=== PATIENT | female | born 1995 | race African-American/Black ===

== ENCOUNTER 2025-03-11 08:24 | Outpatient (AMB) | payer OTHER, SELFPAY ==
--- NOTE | 2025-03-11 11:11 | MHC.OFFVISWM ---
VS Expanded 03/11/25 11:15 Height 5 ft 3 in Weight 227 lb 8 oz BMI 40.3 Body Fat % 43.6 Body Fat Mass 99.2 Fat Free Mass 128.6 Visceral Fat Rating 11 Body Water % 40.6 Body Water Mass 92.4 Basal Metabolic Rate/Score 1,823 Intake Visit Reasons: [employer] SWL BMI 40.3 Allergies No Known Allergies Allergy (Verified 03/11/25 11:16) Medication List - Last Reconciled 03/11/25 by Tank Duncan MD acetaminophen (Tylenol Extra Strength) 500 mg PO Q6H PRN albuterol sulfate 90 mcg/actuation 2 puffs inhalation Q6H PRN ibuprofen 800 mg PO Q8H PRN omeprazole 20 mg PO DAILY sertraline (Zoloft) 100 mg PO DAILY HPI HPI [employer] SWL BMI 40.3: Details: Start time: 11.05am, End time: 11.55am ?I spent 45 minutes speaking with the patient on the phone plus an additional 5 minutes reviewing and updating records for a total of 50 minutes HPI Comments Details: Previous weight loss efforts: [employer], [facility] program (Dr. Sethi), exercise Wakes up: 6am, Sleeps: 11.30pm Breakfast: skips Lunch: skips Dinner: 9pm (chicken, rice, fish, spinach) Snacks: 2 snacks before dinner (gummy wears, chips), 10pm (candy) Exercise: none Beverages: Coffee: (1 cup/d with sugar and creamer), Tea: daily (2 cup/d with condensed milk), Soda: none, Juice: 1/wk (apple juice, orange juice), ETOH: 2/month (1 glass of wine) PFSH Medical History (Updated 03/11/25 @ 11:20 by Tank Duncan MD) Asthma Chronic headaches Anxiety Depression GERD (gastroesophageal reflux disease) Back pain Morbid obesity Surgical History (Updated 03/09/25 @ 11:39 by Sammy Bartlett, REINALDO) History of laparoscopic cholecystectomy History of delivery Family History (Updated 03/09/25 @ 11:38 by Sammy Bartlett, RN) Mother No problems noted. Father No problems noted. Paternal Grandmother Breast cancer Social History (Updated 03/09/25 @ 11:42 by Sammy Bartlett, RN) Alcohol intake: current Comment: once a week Substance Use Type: Marijuana Telehealth Telehealth Telehealth Platform: Telephone Location of provider rendering services: practice address Location of patient: address on file Patient Identification confirmed using: Name, : Yes Telehealth method: voice only Patient verbally consented to treatment: Yes Patient verbally consented to billing insurance company: Yes Patient informed of any privacy concerns related to visit: Yes Minutes spent on Phone/Video with Pt.: 50 Assessment & Plan Assessment & Plan (1) Morbid obesity: Code(s): E66.01 - Morbid (severe) obesity due to excess calories Category: Medical Plan: 1.? Plan for lap sleeve gastrectomy. If diaphragmatic or ventral hernias are present at time of surgery, these will be repaired laparoscopically as well. I emphasized the importance of close follow-up, adherence to instructions and good communication. The surgery does not replace the need to change your lifestlyle which is the cause of the obesity problem. The surgery provides the motivation to try again to change your lifestyle, it reduces the appetite and make the transition to a better lifestyle easier and doubles the amount of weight you would lose compared to doing the lifestyle change without the surgery. You will need to be on a liquid diet with protein shakes for 2 weeks before surgery to maximize weight loss and boost your nutritional status to recover better from surgery and also for the first two weeks after surgery to let the stomach heal before we introduce other foods. After the first 2 weeks we will introduce protein bars and soft foods like scrambled eggs, cottage cheese and yogurt and after the 6th week will introduce meat, fish and cooked vegetables in small amounts. Over time you should be able to eat everything in small amounts. Side effects like nausea, vomiting, heartburn or abdominal pain are not common in the practice unless you are not following in the practice. This operation requires lifetime commitment to following in our practice and communication with me. You will much less weight and experience side effects if you don?t communicate or not following in the practice. Complications are rare and in our practice is about 1/10 of the national average. However, you can develop bleeding that may require transfusion (hasn?t happened for year in the practice), you may from complications (we did not have any deaths in the practice) and infections. Infections are usually a result of breakdown in communication or not understanding or following directions correctly. They are difficult to treat, they can happen during the first 6 weeks, they may require to be in the hospital for weeks or even months, not being able to eat by mouth and you may have drains and surgeries to try and correct the issue. Other risks and complications include possible conversion to an open procedure, leaks, small bowel obstruction, blood clots, cardiac, or pulmonary complications, as intermodal owner operator truck driver complications such as ulcers, insufficient weight loss and vitamin deficiencies. 2. Nutritional counseling. Start with one premade PREMIER protein (buy at [employer] or [employer]) shake (mix 4oz of Premier mixed with 4oz low fat unsweetened almond milk each) at 7am-9am, one protein bar (Fit Crunch protein bar, buy at [employer], or [employer]) at 10am-12pm, another premade PREMIER protein shake (mix 4oz of Premier mixed with 4oz low fat unsweetened almond milk each) at 1pm-3pm, another [employer] protein bar,? dinner at 7pm (8 forks of protein and 8 forks of salad/vegetables) and one more [employer] bar at 9-11pm So you do 2 protein shakes, 3 protein bars and one meal per day. Meal to include lean meat (beef, fish, pork, turkey, chicken), or austrian yogurt, or egg whites, or beans with a salad with olive oil and fruits (berries, pears, apples, kiwi). Avoid salt, breads, potatoes, rice, pasta, desserts. 3. Each shake would be drunk slowly, like coffee in a period of 2 hours. 4. Cut each bar in 4 pieces and eat each piece in 30min ?to make each bar last 2 hours. 5. I emphasized the importance of measuring accurately the food portion and measure it when serving the food in plate 6. The meal portions include 8 full-size forks of meat and 8 full-size forks of salad. You always eat the meat portion but you can replace up to 4 forks for salad/vegetables with rice, potatoes or pasta, or a fruit ?if you like. The less you do it the better weight loss will be. 7. One full-size fork is what it can be scooped on the fork without falling aside and not what can be bit with the fork. Use regular forks like those you find in a typical restaurant. 8.? Please buy the body composition scale we discussed and send me weight measurements as soon as possible and then once a week. Always include your diet and exercise plan. 9. Start walking outside daily, tracking calories with a goal of 300 calories per day, daily. Goal is to burn 2000 calories per week on exercise, which means either 300 calories daily, or 400 calories 5 days per week, or 500 calories 4 days per week, or 650 calories 3 days per week. 10. The best choice would be to purchase a stationary bike, elliptical or treadmill at home that can track calories. Let me know if you do so I can give you an exercise plan. 11.?It is important of avoiding and for at least 18 months postoperatively and has been discussed at the infosession. 12. Goal is to lose at least 1.5-2lbs per week 13. Goal to lose 10% of your weight before surgery, which is about 23lbs. Ultimate weight goal: 204lbs before surgery 14. Please follow the diet plan exactly without any change. If you don't like something about the plan or you feel hungry you need to communicate with me so I can help you revise the plan. You should not change the plan yourself 15. To be scheduled for EGD to assess the stomach's anatomy. The possibility of biopsies was discussed. Patient needs to avoid use of NSAIDs and aspirin for 1 week prior to EGD. You must be on liquids only the day before your endoscopy. Risks of perforation and bleeding was discussed with the patient. This will be an outpatient procedure with IV sedation. Orders: Orders H Pylori Breath Test Today E66.01 - Morbid (severe) obesity due to excess calories Complete Blood Count Auto Diff Today E66.01 - Morbid (severe) obesity due to excess calories Lipid Panel Today E66.01 - Morbid (severe) obesity due to excess calories Comprehensive Met. Panel Today E66.01 - Morbid (severe) obesity due to excess calories Vitamin A Today E66.01 - Morbid (severe) obesity due to excess calories Vitamin D 25-OH Total Today E66.01 - Morbid (severe) obesity due to excess calories Insulin Today E66.01 - Morbid (severe) obesity due to excess calories Hemoglobin A1c Today E66.01 - Morbid (severe) obesity due to excess calories IRON PROFILE Today E66.01 - Morbid (severe) obesity due to excess calories Vitamin B12 and Folate Today E66.01 - Morbid (severe) obesity due to excess calories Zinc Today E66.01 - Morbid (severe) obesity due to excess calories C Reactive Protein Today E66.01 - Morbid (severe) obesity due to excess calories Vitamin B1 Today E66.01 - Morbid (severe) obesity due to excess calories TSH reflex Free T4 Today E66.01 - Morbid (severe) obesity due to excess calories Ferritin Today E66.01 - Morbid (severe) obesity due to excess calories US abdomen comp w elastography Today E66.01 - Morbid (severe) obesity due to excess calories XR chest 2V Today E66.01 - Morbid (severe) obesity due to excess calories ECG 12 lead EKG Today E66.01 - Morbid (severe) obesity due to excess calories FL upper GI w air Today E66.01 - Morbid (severe) obesity due to excess calories Referrals Behavioral Health Referral E66.01 - Morbid (severe) obesity due to excess calories Nutrition/Dietitian Referral E66.01 - Morbid (severe) obesity due to excess calories
[2025-03-11 11:15] VITALS: BMI 40.3
== END 2025-03-11 11:56 | disposition home or self-care (01) ==
LOC: HO.HBS 08:24
PROVIDERS: PCP Internal Medicine; Visit Provider Surgery
DX: E66.01 Morbid (severe) obesity due to excess calories (principal)
CPT/HCPCS: 99204

== ENCOUNTER 2025-03-12 07:52 | Outpatient (REF) | payer OTHER, SELFPAY ==
[2025-03-12 08:06] LABS: MANUAL DIFF FLAG NO
[2025-03-12 08:34] LABS: Hematocrit 37.7 % (37.0-47.0); Hemoglobin 12.2 g/dl (12.0-16.0); Imm Gran Abs Auto 0.02 X10*3/uL (0.00-0.03); Imm Gran Pct Auto 0.3 % (0.0-0.4); Lymphocytes Absolute Auto 2.8 X10*3/uL (1.2-4.9); Mean Corpuscular HGB Conc 32.4 g/dl (31.0-35.0); Mean Corpuscular Hemoglobin 29.4 pg (27.0-33.0); Mean Corpuscular Volume 90.8 fL (80.0-98.0); NRBC Abs Auto 0.000 X10*3/uL (0.0-0.012); NRBC Pct Auto 0.0 /100WBC (0.0-0.2); Platelet Count 262 X10*3/uL (160-400); Red Blood Count 4.15 X10*6/uL (4.20-5.50); White Blood Count 7.7 X10*3/uL (4.8-10.8)
[2025-03-12 09:03] LABS: Anion Gap 9 (12-20)
[2025-03-12 09:07] LABS: Alanine Aminotransferase 19 U/L (0-31); Albumin Level 4.2 g/dL (3.5-5.0); Alkaline Phosphatase 92 U/L (39-117); Aspartate Amino Transferase 33 U/L (5-31); Blood Urea Nitrogen 10 mg/dL (9-16); Calcium 9.5 mg/dL (8.4-10.2); Carbon Dioxide 28 mmol/L (22-29); Chloride 110 mmol/L (96-108); Cholesterol 191 mg/dL (<200); Estimated Glomerular Filt Rate > 60; HDL Cholesterol 46 mg/dL (>40); Iron 85 mcg/dL (30-160); Percent Iron Saturation 35 % (15-50); Potassium 4.0 mmol/L (3.3-5.1); Sodium 143 mmol/L (135-145); Total Iron Binding Capacity 242 mcg/dL (228-428); Total Protein 7.1 g/dL (6.5-8.0); Triglycerides 120 mg/dL (<150); Unsaturated Iron Binding 157 ug/dL
[2025-03-12 09:31] LABS: Ferritin 44 ng/mL (10-122)
[2025-03-12 09:35] LABS: Folate 7.6 ng/mL (> or = 4.0); Vitamin B12 537 pg/mL (200-900)
== END 2025-03-12 07:53 | disposition home or self-care (01) ==
LOC: HO.LAB 07:52
PROVIDERS: PCP Internal Medicine; Visit Provider Surgery
DX: E66.01 Morbid (severe) obesity due to excess calories (principal)
CPT/HCPCS: 36415; 80053; 80061; 82306; 82607; 82728; 82746; 83036; 83525; 83540; 84425; 84443; 84590; 84630; 85025; 86140

== ENCOUNTER 2025-03-19 09:34 | Outpatient (REF) | payer OTHER, SELFPAY ==
--- NOTE | ~2025-03-19 | XR_ITS ---
EXAMINATION: XR CHEST CLINICAL INFORMATION: E66.01 - Morbid (severe) obesity due to excess calories COMPARISON: None available. TECHNIQUE: 2 views of the chest were obtained. FINDINGS: No significant abnormality is noted involving the heart, lungs, mediastinum, bony thorax or soft tissues. XR/XR chest 2V IMPRESSION: No evidence of acute cardiopulmonary findings. Electronically signed by: Walter Treadwell MD 03/19/2025 10:00 AM EDT
--- NOTE | 2025-03-19 09:39 | ECG_ITS ---
Test Reason : E66.01 Blood Pressure : */* mmHG Vent. Rate : 68 BPM Atrial Rate : 68 BPM P-R Int : 164 ms QRS Dur : 82 ms QT Int : 384 ms P-R-T Axes : 60 25 25 degrees QTcB Int : 408 ms Normal sinus rhythm Normal ECG No previous ECGs available Referred By: Tank Duncan Electronically Signed By: Bakari Dale
--- OUTSIDE RECORDS SUMMARY | 2025-03-19 11:00 | XMS_ITS | Clinical Summary ---
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, not stated as uncontrolled(250.60) ([facility]) Family History Medical History Relation Name [...] LAB CHEMISTRY METHOD 2024 3:48 PM EST [facility] Potassium 3.7 3.5 - 5.5 mmol/L LAB CHEMISTRY METHOD 2024 3:48 PM [facility] Chloride 102 96 - 110 mmol/L LAB CHEMISTRY METHOD 2024 3:48 PM [facility] CO2 28 21 - 32 mmol/L LAB CHEMISTRY METHOD 2024 3:48 PM [facility] Anion Gap 6 3 - 11 LAB CHEMISTRY METHOD 2024 3:48 PM [facility] Glucose 112(H) 70 - 100 mg/dL LAB CHEMISTRY METHOD 2024 3:48 PM [facility] BUN 14 5 - 25 mg/dL LAB CHEMISTRY METHOD 2024 3:48 PM [facility] Creatinine 0.82 0.50 - 1.10 mg/dL LAB CHEMISTRY METHOD 2024 3:48 PM [facility] eGFR 98 >=60 mL/min/1. 73m2 LAB CHEMISTRY METHOD 2024 3:48 PM [facility] Comment:Calculation based on the Chronic Kidney Disease Epidemiology Collaboration (CKD-EPI) equation refit without adjustment for race. BUN/Creatinine Ratio 17.1 LAB CHEMISTRY METHOD 2024 3:48 PM [facility] Calcium 9.7 8.5 - 10.5 mg/dL LAB CHEMISTRY METHOD 2024 3:48 PM [facility] AST (SGOT) 36 10 - 42 unit/L LAB CHEMISTRY METHOD 2024 3:48 PM [facility] ALT (SGPT) 32 10 - 60 unit/L LAB CHEMISTRY METHOD 2024 3:48 PM [facility] Alkaline Phosphatase 96 42 - 121 unit/L LAB CHEMISTRY METHOD 2024 3:48 PM [facility] Total Protein 7.3 6.0 - 8.0 g/dL LAB CHEMISTRY METHOD 2024 3:48 PM EST [facility] Albumin 3.6 3.2 - 5.0 g/dL LAB CHEMISTRY METHOD 2024 3:48 PM EST [facility] Total Bilirubin 0.3 0.0 - 1.4 mg/dL LAB CHEMISTRY METHOD 2024 3:48 PM EST [facility] Blood Venous blood specimen / Unknown Venipuncture / Unknown 2024 3:02 PM EST 2024 3:15 PM EST us Elroy Fontaine MD LAB BLOOD ORDERABLES Final Resu lt [facility] [address] [place] [address], [place] [phone] * Pap smear (06/14/2021) 06/14/2021 Narrative HISTORICAL TESTING LAB RESULTING AGENCY - 06/24/2021 7:46 AM EST [id number] THINPREP PAP, IMAGED: NEGATIVE FOR SQUAMOUS INTRAEPITHELIAL [...] Most Recently Relevant to Health Maintenance Insurance [facility] MEDICAID ADVANTAGE Care Teams Division Order Analyst Relationship Specialty Start Date End Date Elroy Herrera MD [address] [place] [phone] PCP - General Internal Medicine 02/03/25
--- OUTSIDE RECORDS SUMMARY | 2025-03-19 11:00 | XMS_ITS ---
Author Name [facility] Organization Unknown Care Team Organization Name Specialty Phone Email Start Date End Da te [facility] Elroy Herrera Primary Care 04/11/2022 01/21/20 24
== END 2025-03-19 09:35 | disposition home or self-care (01) ==
LOC: HO.XRAY 09:34
PROVIDERS: PCP Internal Medicine; Visit Provider Surgery
DX: E66.01 Morbid (severe) obesity due to excess calories (principal)
CPT/HCPCS: 71046; 93005

== ENCOUNTER → 2025-03-19 09:39 | Outpatient (BNV) | payer OTHER, SELFPAY | PROVIDERS: PCP Internal Medicine; Visit Provider Internal Medicine Cardiovascular Disease | DX: E66.01 Morbid (severe) obesity due to excess calories (principal); Z68.41 Body mass index [BMI] 40.0-44.9, adult | CPT/HCPCS: 93010 ==

== ENCOUNTER → 2025-03-19 09:49 | Outpatient (BNV) | payer OTHER, SELFPAY | PROVIDERS: PCP Internal Medicine; Visit Provider Radiology Diagnostic Ultrasound | DX: E66.01 Morbid (severe) obesity due to excess calories (principal); Z68.41 Body mass index [BMI] 40.0-44.9, adult | CPT/HCPCS: 71046 ==

== ENCOUNTER 2025-04-01 11:00 | Outpatient (AMB) | payer OTHER, SELFPAY ==
--- NOTE | 2025-04-01 11:00 | A.OFFWM_ITS ---
Intake Intake Visit Reasons: OV BH Intake Allergies No Known Allergies Allergy (Verified 03/11/25 11:16) [facility] Medical History (Updated 03/19/25 @ 20:15 by Tank Duncan MD) Asthma Chronic headaches Anxiety Depression GERD (gastroesophageal reflux disease) Back pain Morbid obesity Surgical History (Updated 03/09/25 @ 11:39 by Sammy Bartlett, RN) History of laparoscopic cholecystectomy History of delivery Family History (Updated 03/09/25 @ 11:38 by Sammy Bartlett, RN) Mother No problems noted. Father No problems noted. Paternal Grandmother Breast cancer Social History (Updated 03/09/25 @ 11:42 by Sammy Bartlett, RN) Alcohol intake: current Comment: once a week Substance Use Type: Marijuana Behavioral Health Assessment Weight Management Therapy Therapy Notes Details Patient is a 29-year-old female presenting for an initial visit to begin a behavioral health assessment as part of her surgical weight loss program. She originally enrolled in the program in [address] Bustamante but withdrew at that time due to . She is now seeking to re-engage in the program and proceed with the required evaluation to support her current weight loss goals. Presenting Concerns Referral Source WMP-Provider Reason for referral Completion of behavioral health assessment as part of process for weight-loss surgery. Precipitating Event Obesity. Living Situation Current Living Situation Rent At risk of losing current housing? No Satisfied with current living situation? Yes Comments PT lives with her boyfriend and 2 kids. Social History Family history and relationship Pt is in a relationship, they have been together since 2020, and have 1 daughter together. Pt has 2 kids, they are 6 from a previous relationship and a 2 daughter from current partner. Her mother lives in the [facility], father lives in [place]. Mother has been to her step-father for 13 years, they raised her together. PT has 2 sisters and 2 brothers, and 2 brothers and 1 sister from bio-father. PT reports she has good family relationships. She is closer to her mom and step dad side of the family. Parental/Familial cement patcher obligations 2 children. Developmental history and status None reported. Currently WNL. Social support Boyfriend, mother. Community support PCP Congregational/Spirituality Nondenominational Cultural/Ethnic information -Czech. Mom is back and [place], father from [place]. Legal Involvement and History Current or historical involvement with the legal system? None. Education Highest grade completed HS Preferred learning style Learn by doing Currently enrolled in educational program? No Interested in further educational program? Yes Educational Interests/Skills PT wants to go back to school for nursing. 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 ) Meaningful activities Family activities, go out with people with kids. Financial Situation Describe current financial situation Occasional struggle Financial assistance? Food [place] and Other ([facility]) Service Service? No Mental Health and Addiction Treatment Current/Past substance abuse? Yes Comments Alcohol: 1xmonth, wine coolers or wine, 2-3 drinks. Cigarettes/Tobacco: [place] leaves on cannabis Cannabis/Edibles: daily, 4 x day Current/Past addictive behavior concerns? No Psychiatric history Pt currently takes Zoloft 100mg for sx of depression, prescribed currently by PCP. She started that medication after having her first son around 6 years ago due to acute stress and being depressed. PT is not in counseling at this time. She attended counseling younger between ages 11 and 14 PT denies ever been in crisis or inpatient for mental health. There is no history and/or current concern about SI/Sa and self-harm or other harm. Medical and Physical Health Summary Additional Medical History not covered in history None aditional Sexual History concerns None reported Physical exam in the last year? Yes Pain Screening Current pain? No Pain in the last few months? Yes Comments Back pain. Medications Is the patient compliant with medications? Yes Does the patient have Pryor Guardian in place? Not applicable Does the patient use complimentary health approaches? No Trauma/Abuse History History of trauma? Yes (LILLIAN: 4) Questionnaires PHQ-9 Over the last 2 weeks, how often have you been bothered by any of the following problems? 1. Little interest or pleasure in doing things: several days 2. Feeling down, depressed, or hopeless: several days 3. Trouble falling or staying asleep, or sleeping too much: several days 4. Feeling tired or having little energy: several days 5. Poor appetite or overeating: more than half the days 6. Feeling bad about yourself - or that you are a failure or have let yourself or your family down: more than half the days 7. Trouble concentrating on things, such as reading the newspaper or watching television: more than half the days 8. Moving or speaking so slowly that other people could have noticed. Or the opposite - being so fidgety or restless that you have been moving around a lot more than usual: more than half the days 9. Thoughts that you would be better off or of hurting yourself in some way: not at all Total score: 12 Depression Screening Interpretation: Positive (from new PT pack - new one will be administered at next jace.) Depression Screening Done: Yes Source: Developed by Drs. Daniel Stanford, Jeanette Patterson, Moisés Morgan and colleagues, with an educational baldo from [employer]. Binge Eating Scale Group 1 A. I don't feel self-conscious about my wt. or body size when I'm with others. B. I feel concerned about how I look to others, but it normally does not make me fell disappointed with myself C. I do get self-conscious about my appearance and wt. which makes me feel disappointed in myself. D. I feel very self-conscious about my wt. and frequently I feel intense shame and disgust for myself. I try to avoid social contacts because of my self- consciousness. Response Group 1: C Group 2 A. I don't have any difficulty eating slowly in the proper manner. B. Although I seem to gobble down foods, I don't end up feeling stuffed because of eating to much. C. At times, I tend to eat quickly and then, I feel uncomfortably full afterwards. D. I have the habit of bolting down my food, without really chewing it. When this happens I usually feel uncomfortably stuffed because I've eaten to much. Response Group 2: A Group 3 A. I feel capable to control my eating urges when I want to. B. I feel like I have failed to control my eating more than the average person. C. I feel utterly helpless when it comes to feeling in control of my eating urges. D. Because I feel so helpless about controlling my eating I have become very desperate about trying to get control. Response Group 3: B Group 4 A. I don't have the habit of eating when I'm bored. B. I sometimes eat when I'm bored, but often I'm able to get busy and get my mind off food. C. I have a regular habit of eating when I'm bored, but occasionally, I can use some other activity to get my mind off eating. D. I have a strong habit of eating when I'm bored. Nothing seems to help me breath the habit. Response Group 4: C Group 5 A. I'm usually physically hungry when I eat something. B. Occasionally, I eat something on impulse even though I really am not hungry. C. I have the regular habit of eating foods, that I might not really enjoy, to satisfy a hungry feeling even though physically, I don't need the food. D. Although I'm not physically hungry, I get a hungry feeling in my mouth that only seems to be satisfied when I eat a food, like sandwich, that fills my mouth. Sometimes, when I eat the food to satisfy my mouth hunger, I then spit the food out so I won't gain weight. Response Group 5: B Group 6 A. I don't feel any guilt or self-hate after I overeat. B. After I overeat, occasionally I feel guilt or self-hate. C. Almost all the time I experience strong guilt or self-hate after I overeat. Response Group 6: B Group 7 A. I don't lose total control of my eating when dieting even after periods when I overeat. B. Sometimes when I eat a forbidden food on a diet, I feel like I blew it and eat even more. C. Frequently, I have the habit of saying to myself, I've blown it now, why not go all the way, when I overeat on a diet. When that happens I eat more. D. I have a regular habit of starting a strict diets for myself but I break the diets by going on an eating binge. My life seems to be either a feast or famine. Response Group 7: D Group 8 A. I rarely eat so much food that I feel uncomfortably stuffed afterwards. B. Usually about once a month, I each such a quantity of food, I end up feeling very stuffed. C. I have regular periods during the month when I eat large amounts of food, either at mealtime or at snacks. D. I eat so much food that I regularly feel quite uncomfortable after eating and sometimes a bit nauseous. Response Group 8: C Group 9 A. My level of calorie intake does not go up very high or go down very low on a regular basis. B. Sometimes after I overeat, I will try to reduce my caloric intake to almost nothing to compensate for the excess calories I've eaten. C. I have a regular habit of overeating during the night. It seems that my routine is not to be hungry in the morning but overeat in the evening. D. In my adult years, I have had week-long periods where I practically starve myself. This follows periods when I overeat. It seems I live a life of either feast or famine. Response Group 9: D Group 10 A. I usually am able to stop eating when I want to. I know when enough is enough. B. Every so often, I experience a compulsion to eat which I can't seem to control. C. Frequently, I experience strong urges to eat which I seem unable to control, but at other times I can control my eating urges. D. I feel incapable of controlling urges to eat. I have a fear of not being able to stop eating voluntarily. Response Group 10: A Group 11 A. I don't have any problem stopping eating when I feel full. B. I usually can stop eating when I feel full but occasionally overeat leaving me feeling uncomfortably stuffed. C. I have a problem stopping eating once I start and usually I feel uncomfortably stuffed after I eat a meal. D. Because I have a problem not being able to stop eating when I want, I sometimes have to induce vomiting to relieve my stuffed feeling. Response Group 11: B Group 12 A. I seem to eat just as much when I'm with others, Family social gatherings as when I'm by myself. B. Sometimes, when I'm with other persons, I don't eat as much as I want to eat because I'm self-conscious about my eating. C. Frequently, I eat only a small amount of food when others are present, because I'm very embarrassed about my eating. D. I feel so ashamed about overeating that I pick times to overeat when I know no one will see me. I feel like a closet eater. Response Group 12: C Group 13 A. I eat three meals a day with only an occasional between meal snack. B. I eat 3 meals a day, but I also normally snack between meals. C. When I am snacking heavily, I get in the habit of skipping regular meals. D. There are regular periods when I seem to be continually eating, with no planned meals. Response Group 13: C Group 14 A. I don't think much about trying to control unwanted eating urges. B. At least some of the time, I feel my thoughts are pre-occupied with trying to control my eating urges. C. I feel that frequently I spend much time thinking about how much I ate or about trying not to eat anymore. D. It seems to me that most of my waking hours are pre-occupied by thoughts about eating or not eating. I feel like I'm constantly struggling not to eat. Response Group 14: B Group 15 A. I don't think about food a great deal. B. I have strong craving for food but they last only for brief periods of time. C. I have days when I can't seem to think about anything else but food. D. Most of my days seem to be pre-occupied with thoughts about food. I feel like I live to eat. Response Group 15: B Group 16 A. I usually know whether or not I'm physically hungry. I take the right portion of food to satisfy me. B. Occasionally, I feel uncertain about knowing whether or not I'm physically hungry. A these times it's hard to know how much food I should take to satisfy me. C. Even though I might know how many calories I should eat, I don't have any idea what is a normal amount of food for me. Response Group 16: A Binge Eating Score: 22 Score less than 17 Minimal Risk Score between 18-26 Moderate Risk Score between 27-46 High Risk Assessment & Plan Assessment & Plan (1) Adjustment disorder: Code(s): F43.20 - Adjustment disorder, unspecified Qualifiers: Adjustment disorder type: with mixed anxiety and depressed mood Qualified Code(s): F43.23 - Adjustment disorder with mixed anxiety and depressed mood Plan The patient was not cleared today as the assessment was not completed. The patient will return in 2-4 weeks to continue the evaluation. Next appointment: 04/22/2025 at 10am, in person Coding Level of Care Code New Pt Psy Diag Eval ([id number]) Patient Type New Diagnoses Adjustment disorder with mixed anxiety and depressed mood F43.23 Adjustment disorder type: with mixed anxiety and depressed mood Time Spent (min) 60
--- OUTSIDE RECORDS SUMMARY | 2025-04-01 13:56 | XMS_ITS | Clinical Summary ---
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, not stated as uncontrolled(250.60) ([facility]) Family History Medical History Relation Name [...] LAB CHEMISTRY METHOD 2024 3:48 PM EST [facility] Potassium 3.7 3.5 - 5.5 mmol/L LAB CHEMISTRY METHOD 2024 3:48 PM [facility] Chloride 102 96 - 110 mmol/L LAB CHEMISTRY METHOD 2024 3:48 PM [facility] CO2 28 21 - 32 mmol/L LAB CHEMISTRY METHOD 2024 3:48 PM [facility] Anion Gap 6 3 - 11 LAB CHEMISTRY METHOD 2024 3:48 PM [facility] Glucose 112(H) 70 - 100 mg/dL LAB CHEMISTRY METHOD 2024 3:48 PM [facility] BUN 14 5 - 25 mg/dL LAB CHEMISTRY METHOD 2024 3:48 PM [facility] Creatinine 0.82 0.50 - 1.10 mg/dL LAB CHEMISTRY METHOD 2024 3:48 PM [facility] eGFR 98 >=60 mL/min/1. 73m2 LAB CHEMISTRY METHOD 2024 3:48 PM [facility] Comment:Calculation based on the Chronic Kidney Disease Epidemiology Collaboration (CKD-EPI) equation refit without adjustment for race. BUN/Creatinine Ratio 17.1 LAB CHEMISTRY METHOD 2024 3:48 PM [facility] Calcium 9.7 8.5 - 10.5 mg/dL LAB CHEMISTRY METHOD 2024 3:48 PM [facility] AST (SGOT) 36 10 - 42 unit/L LAB CHEMISTRY METHOD 2024 3:48 PM [facility] ALT (SGPT) 32 10 - 60 unit/L LAB CHEMISTRY METHOD 2024 3:48 PM [facility] Alkaline Phosphatase 96 42 - 121 unit/L LAB CHEMISTRY METHOD 2024 3:48 PM [facility] Total Protein 7.3 6.0 - 8.0 g/dL LAB CHEMISTRY METHOD 2024 3:48 PM EST [facility] Albumin 3.6 3.2 - 5.0 g/dL LAB CHEMISTRY METHOD 2024 3:48 PM EST [facility] Total Bilirubin 0.3 0.0 - 1.4 mg/dL LAB CHEMISTRY METHOD 2024 3:48 PM EST [facility] Blood Venous blood specimen / Unknown Venipuncture / Unknown 2024 3:02 PM EST 2024 3:15 PM EST us Elroy Fontaine MD LAB BLOOD ORDERABLES Final Resu lt [facility] [address] [place] [address], [place] [phone] * Pap smear (06/14/2021) 06/14/2021 Narrative HISTORICAL TESTING LAB RESULTING AGENCY - 06/24/2021 7:46 AM EST [id number] THINPREP PAP, IMAGED: NEGATIVE FOR SQUAMOUS INTRAEPITHELIAL [...] PAP HX NEG, Z12.4, LMP 05/23/21. Jazlyn aVlle CN LAB CYTOLOGY ORDERA BLES Final Result HISTORICAL TESTING LAB RESULTING AGENCY from Last 3 Months or Most Recently Relevant to Health Maintenance Insurance [facility] MEDICAID ADVANTAGE Care Teams Side Puller Relationship Specialty Start Date End Date Elroy Herrera MD [address] [place] [id number] PCP - General Internal Medicine 02/03/25
== END 2025-04-01 12:23 | disposition home or self-care (01) ==
LOC: HO.HBST 11:00
PROVIDERS: PCP Internal Medicine; Visit Provider Counselor Mental Health
DX: F43.23 Adjustment disorder with mixed anxiety and depressed mood (principal)
CPT/HCPCS: 90791

== ENCOUNTER 2025-04-09 12:22 | Day surgery (SDC) | payer OTHER, SELFPAY ==
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
--- NOTE | 2025-03-19 09:53 | HO.ANESPROP2 ---
Documented by User: Lise Subramanian NP 03/24/25 14:41 HPI - Anesthesia Eval Consult details Narrative: 29yo F for Upper Endoscopy, 04/09/25 PMFSH Active Problems Active Problems: All Active Problems Asthma (Acute) Chronic headaches (Acute) Anxiety (Acute) Depression (Acute) GERD (gastroesophageal reflux disease) (Acute) Back pain (Acute) Morbid obesity (Acute) Past Medical History Medical History Diabetes Asthma Chronic headaches Anxiety Depression GERD (gastroesophageal reflux disease) Back pain Morbid obesity Family History Family History Mother No problems noted. Father No problems noted. Paternal Grandmother Breast cancer Surgical History Surgical History History of laparoscopic cholecystectomy History of delivery Social History Social History Alcohol intake: current Alcohol intake frequency: holidays/special occasions only Comment: once a week Patient Tobacco Use Status: Never used Tobacco Use of substances other than those prescribed or required for medical reasons: Yes Substance Use Type: Marijuana Are you DNR?: No Advance Directives: No Advance Directives Information Provided: Yes : No Meds Allergies Allergy/AdvReac Type Severity Reaction Status Date / Time No Known Allergies Allergy Verified 03/11/25 11:16 Home Medications ?Medication ?Instructions ?Recorded ?Confirmed ?Last Taken ?Type acetaminophen 500 mg tablet 500 mg PO Q6H PRN Pain 03/09/25 04/07/25 Unknown History (Tylenol Extra Strength) ibuprofen 800 mg tablet 800 mg PO Q8H PRN Pain 03/09/25 04/07/25 Unknown History omeprazole 20 mg capsule,delayed 20 mg PO DAILY 03/09/25 04/07/25 Unknown History release sertraline 100 mg tablet (Zoloft) 100 mg PO DAILY 03/09/25 04/07/25 Unknown History albuterol sulfate 90 mcg/actuation 2 puff inhalation Q6H PRN 03/11/25 04/07/25 Unknown History aerosol inhaler Shortness Of Breath Or Wheezing Assessment and Plan Assessment Anesthesia Assessment: Chart Reviewed Documented by User: Hui Galloway MD 04/09/25 14:26 [facility] Past Medical History Medical History Diabetes Asthma Chronic headaches Anxiety Depression GERD (gastroesophageal reflux disease) Back pain Morbid obesity Family History Family History Mother No problems noted. Father No problems noted. Paternal Grandmother Breast cancer Surgical History Surgical History History of laparoscopic cholecystectomy History of delivery History of Problems with Anesthesia: No Social History Social History Alcohol intake: current Alcohol intake frequency: holidays/special occasions only Comment: once a week Patient Tobacco Use Status: Never used Tobacco Use of substances other than those prescribed or required for medical reasons: Yes Substance Use Type: Marijuana Are you DNR?: No Advance Directives: No Advance Directives Information Provided: Yes : No Meds Allergies Allergy/AdvReac Type Severity Reaction Status Date / Time No Known Allergies Allergy Verified 03/11/25 11:16 Home Medications ?Medication ?Instructions ?Recorded ?Confirmed ?Last Taken ?Type acetaminophen 500 mg tablet 500 mg PO Q6H PRN Pain 03/09/25 04/07/25 Unknown History (Tylenol Extra Strength) ibuprofen 800 mg tablet 800 mg PO Q8H PRN Pain 03/09/25 04/07/25 Unknown History omeprazole 20 mg capsule,delayed 20 mg PO DAILY 03/09/25 04/07/25 Unknown History release sertraline 100 mg tablet (Zoloft) 100 mg PO DAILY 03/09/25 04/07/25 Unknown History albuterol sulfate 90 mcg/actuation 2 puff inhalation Q6H PRN 03/11/25 04/07/25 Unknown History aerosol inhaler Shortness Of Breath Or Wheezing Exam Airway Mallampati Class: III TM Dist: >3cm Neck ROM: Full Loose/Missing/Broken Teeth: No Heart: RRR Lungs: CTA Assessment and Plan Assessment Anesthesia Assessment: Anesthesia Plan Discussed Final Anesthetic Review History of Problems with Anesthesia: No NPO: Yes ASA Class: II Final Preanesthetic Review: Meds/Allgs Chart Reviewed, Consent Obtained/Reviewed and Anes Risks/Benef Reviewed Patient Risk: Low Procedure Risk: Intermediate Anesthetic Plan Anesthetic Plan: MAC: Disposition: Standard PACU
[2025-04-07 13:43] VITALS: BMI 40.3
[2025-04-09 12:58] VITALS: BMI 38.8
[2025-04-09 13:04] VITALS: BP 105/66; PULSE 65; RESP 16; TEMP 36.1; O2SAT 99
[2025-04-09 13:09] LABS: UPreg QC Valid YES
[2025-04-09] MEDS: Lactated Ringers 1,000 ML 80 ML IVCONT (13:22)
--- NOTE | 2025-04-09 14:22 | MHC.SHP ---
Pre-Procedural Eval Section A - 24 Hr Update-Section A only Date of Service: 04/09/25 The patient is an INPATIENT: No The patient has been examined within 24 hours of the surgical procedure. The History & Physical has been completed within 30 days and I have reviewed it.: Yes Section B - Complete if H&P > 30 days Chief Complaint: Morbid (severe) obesity due to excess calories Details of Present Illness: GERD Relevant Family History (Specify if Yes): No Relevant Social History: None Present Medications: None Medical History: No relevant PMH History of Previous Operations: No relevant previous surgery Allergies: Allergies Allergy/AdvReac Type Severity Reaction Status Date / Time No Known Allergies Allergy Verified 03/11/25 11:16 Review of Systems Sugical H&P ROS: Negative: Constitution, Cardiovascular, Respiratory, Neurological, Psychiatric, Hem-Onc, Allergic/Immunologic, Gastrointestinal, Genitourinary, Musculoskeletal, Integumentary, Endocrine and Eyes/Ears/Nose/Throat Exam Surgical H&P Exam: Normal: HEENT, Normal: Heart, Normal: Lungs, Normal: Extremities, Normal: Abdomen, Normal: Skin and Normal: Neurological Plan Diagnosis/Plan: Unchanged (EGD to assess etiology of GERD. Risks of bleeding and perforation were discussed with the patient and she is in agreement with the plan.) I have reviewed the history and physical and performed a pertinent physical examination on my patient. No changes have occurred unless specified. Time Spent With Patient Time: Total time managing care of this patient today ____ minutes.
--- NOTE | 2025-04-09 14:23 | P.BOP_ITS ---
Brief Operative Note Date of Service: 04/09/25 Pre-op diagnosis: GERD Post-op diagnosis: same Procedure: PROCEDURE DATE: 04/09/2025 PREOPERATIVE DIAGNOSIS: GERD POSTOPERATIVE DIAGNOSIS: ?Same as above. 1) 3cm diaphragmatic hernia, 2) antral gastritis, 3) esophagitis PROCEDURE: Aywfdosp-htxydu-ltdtlwbuydfe with biopsies Surgeon: ?Neo Duncan M.D.. Ph.D. Irradiated Fuel Handler: None ? Anesthesia: IV sedation Estimated blood loss: ?Minimal FINDINGS AND PROCEDURE: ? OPERATIVE INDICATIONS: ?The patient is a 29 year old female known to me who is interested in bariatric surgery. The patient has GERD. Based on this information I recommended an upper endoscopy to evaluate the patient's symptoms. Risks and complications of the surgery were discussed with the patient in advance particularly the possibility of perforation or bleeding that may require surgical intervention. The patient understood the risks and was in agreement with the plan. ? PROCEDURE: After informed consent was obtained by the patient, the patient was ?transferred to the Operating Room and was placed in the supine position.? After successful induction of IV sedation, a mouth block was inserted and the patient was placed in the left lateral decubitus position. An upper endoscopy was performed next, the oropharynx and esophagus appeared within the normal limits. There was a 3cm hiatal hernia. The z-line was irregular with tongues of gastric mucosa protruding into the esophagus. Two biopsies were obtained from the distal esophagus 2-3 cm proximal to the GE junction and two additional biopsies from the GE junction. The stomach was entered and it appeared to be of normal size. There was gastritis at the antrum. There was no stricture or ulcer. A biopsy was obtained from the gastric fundus and the antrum. No significant bleeding was noted from any of the biopsy sites. Retroflexion of the scope confirmed the presence of a diaphragmatic hernia. The scope was then advanced into the duodenum which appeared to be normal as well. A t that point the duodenum ?and the stomach were decompressed and the scope was withdrawn from the patient's mouth. The patient extubated and was transferred in stable condition to the Recovery Room for further care. I was present and performed all steps of the procedure. There were no residents to assist with this case. Neo Duncan M.D., Ph.D. Surgeon: Tank Duncan MD Anesthesia: MAC Was an Irradiated Fuel Handler used for this Procedure?: No Estimated blood loss (mL): 0 IV fluids (mL): 400 Urine output (mL): 0 (No Brothers to record output) Pathology: other (1) antrum x1, 2) fundus x1, 3) GE junction x2, 4) distal esophagus x2) Condition: stable Disposition: PACU
[2025-04-09 14:26] LABS: Glucose, Whole Blood 65 mg/dL (60-115)
[2025-04-09 14:48] VITALS: BP 116/77; PULSE 78; RESP 18; TEMP 36.4; O2SAT 96
[2025-04-09 15:00] VITALS: BP 128/89; PULSE 80; RESP 18; O2SAT 96
[2025-04-09 15:15] VITALS: BP 133/81; PULSE 72; RESP 18; O2SAT 96
[2025-04-09 15:30] VITALS: BP 129/77; PULSE 72; RESP 18; O2SAT 96
[2025-04-09 15:45] VITALS: BP 127/75; PULSE 72; RESP 18; O2SAT 96
[2025-04-10 08:09] LABS: Glucose, Whole Blood 84 mg/dL (60-115)
== END 2025-04-09 16:24 | disposition home or self-care (01) ==
PROVIDERS: Anesthesiology; PCP Internal Medicine; Visit Provider Surgery
PROC: 0DJ08ZZ Inspection of Upper Intestinal Tract, Via Natural or Artificial Opening Endoscopic (ICD-10-PCS; CPT 43235; principal; 2025-04-09 14:30)
DX: K21.9 Gastro-esophageal reflux disease without esophagitis (principal); E66.01 Morbid (severe) obesity due to excess calories; K29.50 Unspecified chronic gastritis without bleeding; K20.80 Other esophagitis without bleeding; K44.9 Diaphragmatic hernia without obstruction or gangrene; E11.9 Type 2 diabetes mellitus without complications; R51.9 Headache, unspecified; J45.909 Unspecified asthma, uncomplicated; Z68.41 Body mass index [BMI] 40.0-44.9, adult; M54.9 Dorsalgia, unspecified; F32.A Depression, unspecified; Z79.85 Long-term (current) use of injectable non-insulin antidiabetic drugs; Z79.1 Long term (current) use of non-steroidal anti-inflammatories (NSAID); Z79.899 Other long term (current) drug therapy; Z90.49 Acquired absence of other specified parts of digestive tract
CPT/HCPCS: 43239; 81025; 82947; 88305; 88313; 88342; J2003; J2704

== ENCOUNTER → 2025-04-09 12:22 | Outpatient (BNV) | payer OTHER, SELFPAY | PROVIDERS: PCP Internal Medicine; Visit Provider Surgery | DX: E66.01 Morbid (severe) obesity due to excess calories (principal); Z68.41 Body mass index [BMI] 40.0-44.9, adult; K21.9 Gastro-esophageal reflux disease without esophagitis | CPT/HCPCS: 43239 ==

== ENCOUNTER 2025-04-17 09:37 | Outpatient (AMB) | payer OTHER, SELFPAY ==
--- OUTSIDE RECORDS SUMMARY | 2025-04-16 09:09 | XMS_ITS | Encounter Summary ---
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 documented in this encounter Visit Diagnoses Diagnosis Paraumbilical hernia- Primary Umbilical hernia without mention of obstruction or gangrene Epigastric pain Abdominal pain, epigastric documented in this encounter Administered Medications Inactive Administered Medications - up to 3 most recent administrations Medication Order MAR Action Action Date Dose Rate Site famotidine (PF) (PEPCID) injection 20 mg 20 mg, intravenous, Administer over 2 Minutes, Once, On [place] 04/16/25 at 0932, For 1 dose Given 04/16/2025 9:46 AM EST 20 mg iopamidoL (ISOVUE-370) 370 mg iodine /mL (76 %) injection 90 mL 90 mL, intravenous, Once in imaging, Starting on [place] 04/16/25 at 1054, For 1 dose Given 04/16/2025 11:00 AM EST 90 mL morphine injection 2 mg 2 mg, intravenous, Once, On [place] 04/16/25 at 1000, For 1 dose Given 04/16/2025 9:46 AM EST 2 mg morphine injection 2 mg 2 mg, intravenous, Once, On [place] 04/16/25 at 1317, For 1 dose Given 04/16/2025 1:36 PM EST 2 mg ondansetron (PF) (ZOFRAN) injection 4 mg 4 mg, intravenous, Once, On [place] 11/13/25 at 0932, For 1 dose Given 04/16/2025 9:46 AM EST 4 mg ondansetron (PF) (ZOFRAN) injection 4 mg 4 mg, intravenous, Once, On [place] 04/16/25 at 1317, For 1 dose Given 04/16/2025 1:36 PM EST 4 mg sodium chloride 0.9 % bolus 1,000 mL 1,000 mL, intravenous, at 2,000 mL/hr, Administer over 30 Minutes, Once, On [place] 04/16/25 at 0932, For 1 dose New Bag 04/16/2025 9:46 AM EST 1,000 mL 2000 mL/hr sodium chloride 0.9 % flush 10 mL 10 mL, intravenous, Once, On [place] 04/16/25 at 1056, For 1 dose Given 04/16/2025 11:00 AM EST 10 mL documented in this encounter Active and Recently Administered Medications Times are shown in EST. Scheduled Medication Order 04/14/2025 04/15/2025 04/16/2025 famotidine (PF) (PEPCID) injection 20 mg (COMPLETED) 20 mg, intravenous, Administer over 2 Minutes, Once, On [place] 04/16/25 at 0932, For 1 dose 945 (Given - Provid er: Livier Weiss RN) iopamidoL (ISOVUE-370) 370 mg iodine /mL (76 %) injection 90 mL (COMPLETED) 90 mL, intravenous, Once in imaging, Starting on [place] 04/16/25 at 1054, For 1 dose 1100 (Given - Provid er: Kathrin Hill) morphine injection 2 mg (COMPLETED) 2 mg, intravenous, Once, On [place] 04/16/25 at 1000, For 1 dose 0946 (Given - Provid er: Livier Weiss RN) morphine injection 2 mg (COMPLETED) 2 mg, intravenous, Once, On [place] 04/16/25 at 1317, For 1 dose 1336 (Given - Provid er: Livier Weiss RN) ondansetron (PF) (ZOFRAN) injection 4 mg (COMPLETED) 4 mg, intravenous, Once, On [place] 04/16/25 at 0932, For 1 dose 0946 (Given - Provid er: Livier Weiss RN) ondansetron (PF) (ZOFRAN) injection 4 mg (COMPLETED) 4 mg, intravenous, Once, On [place] 04/16/25 at 1317, For 1 dose 1336 (Given - Provid er: Livier Weiss RN) sodium chloride 0.9 % bolus 1,000 mL (COMPLETED) 1,000 mL, intravenous, at 2,000 mL/hr, Administer over 30 Minutes, Once, On [place] 04/16/25 at 0932, For 1 dose 0946 (New Bag - Prov ider: Livier Weiss RN)1101 (Stopped - Provider: Livier Weiss RN) sodium chloride 0.9 % flush 10 mL (COMPLETED) 10 mL, intravenous, Once, On [place] 04/16/25 at 1056, For 1 dose 1100 (Given - Provid er: Kathrin Hill) documented in this encounter Orders Nursing Count Last Ordered Date First Orde red Date VITAL SIGNS 1 04/16/2025 documented in this encounter 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
--- NOTE | 2025-04-17 09:54 | MHC.OFFVISWM ---
VS Expanded 04/17/25 09:55 BP 151/85 H Blood Pressure Location Rt brachial Pulse 62 Pulse Source Pulse Oximeter Temp 97.7 F Temperature Source Temporal Artery Scan Pulse Oximetry 100 Oxygen Delivery Method Room Air Height 5 ft 3 in Weight 117 lb 3.2 oz BMI 20.8 Body Fat % 45 Body Fat Mass 96 Fat Free Mass 117.2 Visceral Fat Rating 10.0 Body Water % 39.5 Body Water Mass 84.2 Muscle Mass/Score 111.4 Basal Metabolic Rate/Score 1,676 Intake Visit Reasons: OV Follow Up SWL Allergies No Known Allergies Allergy (Verified 03/11/25 11:16) HPI HPI OV Follow Up SWL: Details: Patient texted me last night to let me know that she went to the [facility] ER for abdominal pain. She was told that she has an abdominal wall hernia C/o of supraumbilical pain. No nausea or vomiting. Started at home after a meal. CT from [facility]: small HH, moderate size umbilical/incisional hernia containing omentum. No intestinal incarceration and no obstruction Lipase was normal Mild elevation of LFTs and WBC: 12.3 PFSH Medical History Diabetes Asthma Chronic headaches Anxiety Depression GERD (gastroesophageal reflux disease) Back pain Morbid obesity Surgical History History of laparoscopic cholecystectomy History of delivery Family History Mother No problems noted. Father No problems noted. Paternal Grandmother Breast cancer Social History Alcohol intake: current Alcohol intake frequency: holidays/special occasions only Comment: once a week Patient Tobacco Use Status: Never used Tobacco Substance Use Type: Marijuana Physical Exam Vital Signs: Last Vital Signs Temp 97.7 F 04/17/25 09:55 Pulse 62 04/17/25 09:55 BP 151/85 H 04/17/25 09:55 Pulse Ox 100 04/17/25 09:55 Oxygen Delivery Method Room Air 04/17/25 09:55 BMI result Body Mass Index 20.8 GI Inspection: Yes normal to inspection Palpation (GI): Soft to palpation and Tenderness to palpation present (GI) (supraumbilical tenderness, no peritoneal signs) Assessment & Plan Assessment & Plan (1) Abdominal pain: Code(s): R10.9 - Unspecified abdominal pain Category: Medical Qualifiers: Abdominal location: periumbilical Qualified Code(s): R10.33 - Periumbilical pain Plan: 1) Stop Mounjaro 2) Percocet for pain 3) Off work until Sunday and re-assess over the weekend 4) Probably pain is due to incarcerated omentum. No immediate risk. It would be best to treat conservatively and repair the hernia after LSG when patient reaches a normal weight Medications: New oxycodone-acetaminophen 5-325 mg (Percocet) Partial Fill upon patient request. 1 tab PO Q6H PRN 10 tabs 0RF pain R10.9 - Unspecified abdominal pain
[2025-04-17 09:55] VITALS: BP 151/85; PULSE 62; TEMP 36.5; O2SAT 100; BMI 20.8
--- OUTSIDE RECORDS SUMMARY | 2025-04-17 10:41 | XMS_ITS | Clinical Summary ---
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 Let 1 tablet dissolve under the tongue three times daily as needed for nausea or vomiting. 10 tablet 04/19/20 25 Active Encounters Date Type Department Care Team Description 04/16/2025 9:09 AM EST - 04/16/2025 3:32 PM EST Emergency [facility] Emergency [address] [place] [address] Param Patrick MD Paraumbilical hernia (Primary Dx); Epigastric pain Discharge Disposition: Home or Self Care from Last 3 Months Surgical History Surgery Date Site/Laterality Comments SECTION 2019 PROCEDURE: HISTORICAL DELIVERY Medical History Medical History [...] with neurological manifestations, not stated as uncontrolled(250.60) ([facility] V24, [facility] V28) 09/22/2014 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, not stated as uncontrolled(250.60) ([facility]) Family History Medical History Relation Name [...] Status Comments Aunt Brother 1 Alive 01/15/06 Paco Brennan Brother 2 Alive 11/23/11 Yahaira fordbrittni Father Alive Maternal Grandfather Alive Maternal Grandmother Alive Mother Alive 05/25/77 Gissell Patterson Paternal Grandfather Alive Paternal Grandmother Alive Sister 1 Alive 06/07/95 Gil Murrieta Sister 2 Alive 06/28/03 Jocelynn Patterson [...] Mass Index 37.91 04/16/2025 9:01 AM EST Plan of Treatment Health Maintenance Due Date Last Done Comments Diabetes: Annual Foot Exam 2003 Diabetes: Annual Retina Eye Exam 2003 Pneumococcal Vaccine: Pediatrics (0 to 5 Years) [...] 2025 08/19/2020 Influenza Vaccine (#1) 2025 , 05/04/2021, 02/16/2011, Additional history exists Diabetes: Annual GFR (Glomerular Filtration Rate) 04/16/2026 04/16/2025, 2024 DTaP,Tdap,and Td Vaccines (10 - Td or Tdap) 09/01/2032 09/01/2022, 12/06/2018, 10/13/2009, Additional history exists RSV Immunization Adult Patients (1 - 1-dose 75+ series) 2068 Hepatitis B Vaccines Completed 03/31/1994, 1993, 1993 HIB Vaccines Completed 12/29/1994, 12/03, 03/31/1994, Additional history exists IPV Vaccines Completed 12/25/1997, 12/03, 12/29/1994, Additional history exists HPV Vaccines Completed 04/04/2007, 10/04, 08/24/2006 Varicella Vaccines Completed 10/13/2009, 12/25/1997 Meningococcal ACWY Vaccine Aged Out 08/16/2012, No longer eligible based on patient's age to complete this topic MMR Vaccines Completed 11/04/2022, 01/04, 12/25/1997, Additional history exists Hepatitis A Vaccines Aged Out No long [...] EXTRA TUBES Routine 04/16/2025 10:17 AM EST HCG, SERUM, QUALITATIVE STAT Add-on 04/16/2025 9:41 AM EST CBC WITH AUTO DIFFERENTIAL STAT 04/16/2025 9:41 AM EST LIPASE STAT 04/16/2025 9:41 AM EST COMPREHENSIVE METABOLIC PANEL STAT 04/16/2025 9:41 AM EST CBC AND DIFFERENTIAL STAT 04/16/2025 9:41 AM EST PAP SMEAR Routine 06/14/2021 from Last 3 Months or Most Recently Relevant to Health Maintenance Results * (ABNORMAL) Urinalysis with reflex microscopic (04/16/2025 11:26 AM EST) Specific [place] Urine >1.045(H) 1.003 - 1.030 LAB URINALYSIS - AUTOMATED METHOD 04/16/2025 12:07 PM EST [facility] pH, Urine 6.5 5.0 - 8.0 pH LAB URINALYSIS - AUTOMATED METHOD 04/16/2025 12:07 PM [facility] Leukocytes, Urine Negative Negative LAB URINALYSIS - AUTOMATED METHOD 04/16/2025 12:07 PM [facility] Nitrite, Urine Negative Negative LAB URINALYSIS - AUTOMATED METHOD 04/16/2025 12:07 PM [facility] Protein, Urine Trace <=Trace mg/dL LAB URINALYSIS - AUTOMATED METHOD 04/16/2025 12:07 PM [facility] Glucose, Urine Negative Negative mg/dL LAB URINALYSIS - AUTOMATED METHOD 04/16/2025 12:07 PM [facility] Ketones, Urine Trace(A) Negative mg/dL LAB URINALYSIS - AUTOMATED METHOD 04/16/2025 12:07 PM [facility] Urobilinogen , Urine 1.0 0.2 - 1.0 mg/dL LAB URINALYSIS - AUTOMATED METHOD 04/16/2025 12:07 PM [facility] Bilirubin, Urine Negative Negative LAB URINALYSIS - AUTOMATED METHOD 04/16/2025 12:07 PM [facility] Blood, Urine Negative Negative LAB URINALYSIS - AUTOMATED METHOD 04/16/2025 12:07 PM [facility] Urine Urine specimen obtained by clean catch procedure / Unknown Non-blood Collection / Unknown 04/16/2025 11:26 AM EST 04/16/2025 11:56 AM EST us Ольга SHARPE LAB URINE ORDERABLES Final Resul t [facility] [address] [place] [address], * CT Abdomen Pelvis w Contrast (04/16/2025 [...] Signed Date: 04/16/2025 11:17 ET Workstation ID: [id number] Transcribed By: Self Edit Transcribed Date: 04/16/2025 [...] Signed Date: 04/16/2025 11:17 ET Workstation ID: [id number] Transcribed By: Self Edit Transcribed Date: 04/16/2025 11:10 ET Ольга SHARPE IM CT PROCEDURES Final Result * [place] urine culture tube (04/16/2025 10:17 AM EST) Extra Tube Hold for add-ons. 04/16/2025 1:01 PM EST [facility] Comment:Auto resulted. Urine Urine specimen obtained by clean catch procedure / Unknown 04/16/2025 10:17 AM EST 04/16/2025 11:56 AM EST Param Patrick MD LAB URINE ORDERABLES Final Result [facility] [address] [place] [address], * (ABNORMAL) CBC auto differential (04/16/2025 9:41 AM EST) WBC 12.3(H) 4.8 - 10.8 K/mcL LAB HEMETOLOGY METHOD 04/16/2025 10:00 AM [facility] RBC 4.40 3.80 - 4.80 M/mcL LAB HEMETOLOGY METHOD 04/16/2025 10:00 AM [facility] Hemoglobin 13.0 11.5 - 16.0 g/dL LAB HEMETOLOGY METHOD 04/16/2025 10:00 AM [facility] Hematocrit 38.5 35.0 - 47.0 % LAB HEMETOLOGY METHOD 04/16/2025 10:00 AM [facility] MCV 87.9 79.0 - 98.0 FL LAB HEMETOLOGY METHOD 04/16/2025 10:00 AM [facility] MCH 29.7 27.0 - 32.0 pcg LAB HEMETOLOGY METHOD 04/16/2025 10:00 AM [facility] MCHC 33.8 32.0 - 37.0 g/dL LAB HEMETOLOGY METHOD 04/16/2025 10:00 AM [facility] RDW 12.8 11.0 - 15.0 % LAB HEMETOLOGY METHOD 04/16/2025 10:00 AM [facility] Platelets 234 130 - 400 K/mcL LAB HEMETOLOGY METHOD 04/16/2025 10:00 AM [facility] MPV 11.1(H) 7.0 - 11.0 FL LAB HEMETOLOGY METHOD 04/16/2025 10:00 AM [facility] NRBC 0.0 <1.0 % LAB HEMETOLOGY METHOD 04/16/2025 10:00 AM [facility] NRBC Absolute 0.00 <0.10 K/mcL LAB HEMETOLOGY METHOD 04/16/2025 10:00 AM [facility] Neutrophils Relative 69.5 % LAB HEMETOLOGY METHOD 04/16/2025 10:00 AM [facility] Lymphocytes Relative 21.4 % LAB HEMETOLOGY METHOD 04/16/2025 10:00 AM [facility] Monocytes Relative 8.5 % LAB HEMETOLOGY METHOD 04/16/2025 10:00 AM [facility] Eosinophils Relative 0.0 % LAB HEMETOLOGY METHOD 04/16/2025 10:00 AM [facility] Basophils Relative 0.2 % LAB HEMETOLOGY METHOD 04/16/2025 10:00 AM [facility] Immature Granulocytes Relative 0.4 % LAB HEMETOLOGY METHOD 04/16/2025 10:00 AM [facility] Neutrophils Absolute 8.54(H) 1.50 - 7.00 K/mcL LAB HEMETOLOGY METHOD 04/16/2025 10:00 AM [facility] Lymphocytes Absolute 2.63 1.00 - 5.00 K/mcL LAB HEMETOLOGY METHOD 04/16/2025 10:00 AM [facility] Monocytes Absolute 1.04(H) 0.20 - 1.00 K/mcL LAB HEMETOLOGY METHOD 04/16/2025 10:00 AM [facility] Eosinophils Absolute 0.00 0.00 - 0.50 K/mcL LAB HEMETOLOGY METHOD 04/16/2025 10:00 AM [facility] Basophils Absolute 0.03 0.00 - 0.20 K/mcL LAB HEMETOLOGY METHOD 04/16/2025 10:00 AM [facility] Immature Granulocytes Absolute 0.05(H) 0.00 - 0.03 K/mcL LAB HEMETOLOGY METHOD 04/16/2025 10:00 AM EST [facility] Blood Venous blood specimen / Unknown Venipuncture / Unknown 04/16/2025 9:41 AM EST 04/16/2025 9:54 AM EST Ольга SHARPE LAB BLOOD ORDERABLES Final Resul t Performing Organization Address [facility] Co de Phone Number [facility] [address] [place] [address], [place] [phone] * hCG, serum, qualitative (04/16/2025 9:41 AM EST) Pathologist [facility] hCG Qual Negative Negative 04/16/2025 10:45 AM EST [facility] Blood Venous blood specimen / Unknown Venipuncture / Unknown 04/16/2025 9:41 AM EST 04/16/2025 9:54 AM EST Param Patrick MD LAB BLOOD ORDERABLES Final Result Performing Organization Address [facility] de Phone Number [facility] [address] [place] [address], [place] [phone] * Lipase (04/16/2025 9:41 AM EST) Pathologist [facility] Lipase 63 13 - 75 unit/L LAB CHEMISTRY METHOD 04/16/2025 10:22 AM EST [facility] Blood Venous blood specimen / Unknown Venipuncture / Unknown 04/16/2025 9:41 AM EST 04/16/2025 9:54 AM EST Ольга SHARPE LAB BLOOD ORDERABLES Final Resul t Performing Organization Address [facility] Co de Phone Number [facility] [address] [place] [address], [place] [phone] * (ABNORMAL) Comprehensive Metabolic Panel (CMP) (04/16/2025 9:41 AM EST) [facility] Signature Sodium 135 133 - 145 mmol/L LAB CHEMISTRY METHOD 04/16/2025 10:23 AM [facility] Potassium 3.6 3.5 - 5.5 mmol/L LAB CHEMISTRY METHOD 04/16/2025 10:23 AM [facility] Chloride 100 96 - 110 mmol/L LAB CHEMISTRY METHOD 04/16/2025 10:23 AM [facility] CO2 29 21 - 32 mmol/L LAB CHEMISTRY METHOD 04/16/2025 10:23 AM [facility] Anion Gap 6 3 - 11 LAB CHEMISTRY METHOD 04/16/2025 10:23 AM [facility] Glucose 115(H) 70 - 100 mg/dL LAB CHEMISTRY METHOD 04/16/2025 10:23 AM [facility] BUN 13 5 - 25 mg/dL LAB CHEMISTRY METHOD 04/16/2025 10:23 AM [facility] Creatinine 0.90 0.50 - 1.10 mg/dL LAB CHEMISTRY METHOD 04/16/2025 10:23 AM [facility] eGFR 88 >=60 mL/min/1. 73m2 LAB CHEMISTRY METHOD 04/16/2025 10:23 AM [facility] Comment:Calculation based on the Chronic Kidney Disease Epidemiology Collaboration (CKD-EPI) equation refit without adjustment for race. BUN/Creatinine Ratio 14.4 LAB CHEMISTRY METHOD 04/16/2025 10:23 AM [facility] Calcium 9.6 8.5 - 10.5 mg/dL LAB CHEMISTRY METHOD 04/16/2025 10:23 AM [facility] AST (SGOT) 56(H) 10 - 42 unit/L LAB CHEMISTRY METHOD 04/16/2025 10:23 AM [facility] ALT (SGPT) 73(H) 10 - 60 unit/L LAB CHEMISTRY METHOD 04/16/2025 10:23 AM EST [facility] Alkaline Phosphatase 92 42 - 121 unit/L LAB CHEMISTRY METHOD 04/16/2025 10:23 AM EST [facility] Total Protein 7.4 6.0 - 8.0 g/dL LAB CHEMISTRY METHOD 04/16/2025 10:23 AM EST [facility] Albumin 3.9 3.2 - 5.0 g/dL LAB CHEMISTRY METHOD 04/16/2025 10:23 AM EST [facility] Total Bilirubin 0.4 0.0 - 1.4 mg/dL LAB CHEMISTRY METHOD 04/16/2025 10:23 AM EST [facility] Blood Venous blood specimen / Unknown Venipuncture / Unknown 04/16/2025 9:41 AM EST 04/16/2025 9:54 AM EST us Ольга SHARPE LAB BLOOD ORDERABLES Final Resul t [facility] [address] [place] [address], * Pap smear (06/14/2021) 06/14/2021 Narrative HISTORICAL TESTING LAB RESULTING AGENCY - 06/24/2021 7:46 AM EST [id number] THINPREP PAP, IMAGED: NEGATIVE FOR SQUAMOUS INTRAEPITHELIAL [...] PAP HX NEG, Z12.4, LMP 05/23/21. Jazlyn Vidal Valle [facility] CYTOLOGY ORDERA BLES Final Result HISTORICAL TESTING LAB RESULTING AGENCY from Last 3 Months or Most Recently Relevant to Health Maintenance Insurance 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
== END 2025-04-17 11:42 | disposition home or self-care (01) ==
PROVIDERS: PCP Internal Medicine; Visit Provider Surgery
DX: R10.33 Periumbilical pain (principal)
CPT/HCPCS: 99214

== ENCOUNTER → 2025-04-17 09:37 | Outpatient (BNVA) | payer OTHER, SELFPAY | PROVIDERS: PCP Internal Medicine; Visit Provider Surgery | DX: R10.33 Periumbilical pain (principal) | CPT/HCPCS: 99212 ==

== ENCOUNTER 2025-04-22 10:25 | Outpatient (AMB) | payer OTHER, SELFPAY ==
--- NOTE | 2025-04-22 10:10 | MHC.WMTHER ---
Intake Intake Visit Reasons: VIDEO Intake Part 2 Allergies No Known Allergies Allergy (Verified 03/11/25 11:16) REPLACED BY [facility] Medical History Diabetes Asthma Chronic headaches Anxiety Depression GERD (gastroesophageal reflux disease) Back pain Morbid obesity Surgical History History of laparoscopic cholecystectomy History of delivery Family History Mother No problems noted. Father No problems noted. Paternal Grandmother Breast cancer Social History Alcohol intake: current Alcohol intake frequency: holidays/special occasions only Comment: once a week Patient Tobacco Use Status: Never used Tobacco Substance Use Type: Marijuana Behavioral Health Assessment Weight Management Therapy Therapy Notes Details The patient is a 29-year-old female presenting for her second visit to complete the behavioral health assessment as part of her surgical weight loss program. She initially enrolled in the program in [address] Bustamante but withdrew at that time due to . She is now seeking to re-engage in the program and proceed with the required evaluation to support her current weight loss goals. The patient reports discontinuing tirzepatide (Mounjaro) due to gastrointestinal side effects. She has also decided to stop smoking, which was already a goal prior to surgery. She notes experiencing financial constraints that have made it difficult to purchase meal replacement shakes. During today?s visit, we completed the assessment and utilized a solution-focused approach to help her develop a plan for obtaining the necessary products for both the pre- and post-operative periods. The importance of following the surgeon?s instructions was reviewed. The patient was informed about available post-operative resources and expressed interest in attending support groups. Presenting Concerns Referral Source WMP-Provider Reason for referral Completion of behavioral health assessment as part of process for weight-loss surgery. Precipitating Event Obesity. Living Situation Current Living Situation Rent At risk of losing current housing? No Satisfied with current living situation? Yes Comments PT lives with her boyfriend and 2 kids. Food/Weight/Diet Expectations of change PT started the program in March 2025 at 227 and reported a recent weight today was 219Lbs. The initial goal is to lose 10% of your weight before surgery, which is about 23lbs. Ultimate weight goal: 204lbs before surgery Patient would like to weight 135Lbs post-op and continue living a healthier life. PT is implementing the following: Current meal plan: 2 protein shakes, 3 protein bars and one meal per day. Exercise plan: cardio, burn 300 ancelmo daily. She tries to do 4 days at least. scale: yes Communication with provider: send measures on Wednesdays. History/Relationship with food PT reports at times she eats when bored, denies stress eating, however when having a bad day or is stressed she has low appetite. PT reports they tend to order pizza 1x week and meals are usually Matias style w/ lots of plantains, and different protein meats. Example of meals before starting the program: Breakfast: Skip Lunch: skip. Dinner: chicken/fish, rice, plantains. PBG sandwich, noodles. Snacks: deli meat w/ cheese, sausage, candy (mainly at night) Drinks/Liquids: Cofee:1-2 with creamer and sugar. Soda: None. Juice: 3 cups at day. Energy drinks: none. Water: 6 bottles at day. Alcohol: social, 1x month or less. History/Relationship with weight PT denies being overweight in childhood, however she started control at age 14 and since then she started gaining consistent weight. Then later in life in 2007 she did the Depo Shot as contraceptive and she gained about 25Lbs in the first year. In the last 10 years, the patient's Lowest weight was 198Lbs and highest 250Lbs History/Relationship with dieting [employer]bal[employer], weightwatchers, GLP-1. Binge Eating Do you frequently eat large amounts of food in short periods of time, not feeling physically hungry? No Do you feel out of control when you eat a large amount of food in a short period of time? No Do you eat large amounts of food rapidly and typically alone? No Night Eating Do you wake up at least once during the night to eat? No If you wake up in the night, do you find that it is necessary to eat something in order to fall back asleep? No Do you have little or no appetite in the morning and feel very hungry in the evening, often overeating between dinner and when you go to bed? Yes Social History Family history and relationship Pt is in a relationship, they have been together since 2020, and have 1 daughter together. Pt has 2 kids, they are 6 from a previous relationship and a 2 daughter from current partner. Her mother lives in the [facility], father lives in [place]. Mother has been to her step-father for 13 years, they raised her together. PT has 2 sisters and 2 brothers, and 2 brothers and 1 sister from bio-father. PT reports she has good family relationships. She is closer to her mom and step dad side of the family. Parental/Familial pyridine operator obligations 2 children. Developmental history and status None reported. Currently WNL. Social support Boyfriend, mother. Community support PCP Evangelical/Spirituality Gnosticism Cultural/Ethnic information -Guyanese. Mom is back and , father from [place]. Legal Involvement and History Current or historical involvement with the legal system? None. Education Highest grade completed HS Preferred learning style Learn by doing Currently enrolled in educational program? No Interested in further educational program? Yes Educational Interests/Skills PT wants to go back to school for nursing. 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 ) Meaningful activities Family activities, go out with people with kids. Financial Situation Describe current financial situation Occasional struggle Financial assistance? Food [place] and Other ([facility]) Service Service? No Mental Health and Addiction Treatment Current/Past substance abuse? Yes Comments Alcohol: 1xmonth, wine coolers or wine, 2-3 drinks. Cigarettes/Tobacco: [place] leaves on cannabis Cannabis/Edibles: daily, 4 x day Current/Past addictive behavior concerns? No Psychiatric history The patient is currently prescribed Zoloft 100 mg daily by her primary care provider for symptoms of depression. She initiated this medication approximately six years ago, following the of her first son, in the context of acute stress and depressive symptoms. She is not currently engaged in counseling but previously attended therapy between the ages of 11 and 14. The patient denies any history of psychiatric crisis, inpatient psychiatric treatment, suicidal ideation, suicide attempts, self-harm, or thoughts of harming others. Medical and Physical Health Summary Additional Medical History not covered in history None aditional Sexual History concerns None reported Physical exam in the last year? Yes Pain Screening Current pain? No Pain in the last few months? Yes Comments Back pain. Medications Is the patient compliant with medications? Yes Does the patient have Pryor Guardian in place? Not applicable Does the patient use complimentary health approaches? No Trauma/Abuse History History of trauma? Yes (LILLIAN: 4) Questionnaires PHQ-9 Over the last 2 weeks, how often have you been bothered by any of the following problems? 1. Little interest or pleasure in doing things: not at all 2. Feeling down, depressed, or hopeless: not at all 3. Trouble falling or staying asleep, or sleeping too much: not at all 4. Feeling tired or having little energy: several days 5. Poor appetite or overeating: several days (poor appetite) 6. Feeling bad about yourself - or that you are a failure or have let yourself or your family down: several days 7. Trouble concentrating on things, such as reading the newspaper or watching television: not at all 8. Moving or speaking so slowly that other people could have noticed. Or the opposite - being so fidgety or restless that you have been moving around a lot more than usual: not at all 9. Thoughts that you would be better off or of hurting yourself in some way: not at all Total score: 3 Depression Screening Interpretation: Negative (minimal Sx) Depression Screening Done: Yes 42452 - PHQ-9 Billing: Yes Source: Developed by Drs. Daniel Stanford, Jeanette Patterson, Moisés Morgan and colleagues, with an educational baldo from [employer] [place]. Binge Eating Scale Group 1 A. I don't feel self-conscious about my wt. or body size when I'm with others. B. I feel concerned about how I look to others, but it normally does not make me fell disappointed with myself C. I do get self-conscious about my appearance and wt. which makes me feel disappointed in myself. D. I feel very self-conscious about my wt. and frequently I feel intense shame and disgust for myself. I try to avoid social contacts because of my self-consciousness. Response Group 1: C Group 2 A. I don't have any difficulty eating slowly in the proper manner. B. Although I seem to gobble down foods, I don't end up feeling stuffed because of eating to much. C. At times, I tend to eat quickly and then, I feel uncomfortably full afterwards. D. I have the habit of bolting down my food, without really chewing it. When this happens I usually feel uncomfortably stuffed because I've eaten to much. Response Group 2: A Group 3 A. I feel capable to control my eating urges when I want to. B. I feel like I have failed to control my eating more than the average person. C. I feel utterly helpless when it comes to feeling in control of my eating urges. D. Because I feel so helpless about controlling my eating I have become very desperate about trying to get control. Response Group 3: B Group 4 A. I don't have the habit of eating when I'm bored. B. I sometimes eat when I'm bored, but often I'm able to get busy and get my mind off food. C. I have a regular habit of eating when I'm bored, but occasionally, I can use some other activity to get my mind off eating. D. I have a strong habit of eating when I'm bored. Nothing seems to help me breath the habit. Response Group 4: C Group 5 A. I'm usually physically hungry when I eat something. B. Occasionally, I eat something on impulse even though I really am not hungry. C. I have the regular habit of eating foods, that I might not really enjoy, to satisfy a hungry feeling even though physically, I don't need the food. D. Although I'm not physically hungry, I get a hungry feeling in my mouth that only seems to be satisfied when I eat a food, like sandwich, that fills my mouth. Sometimes, when I eat the food to satisfy my mouth hunger, I then spit the food out so I won't gain weight. Response Group 5: B Group 6 A. I don't feel any guilt or self-hate after I overeat. B. After I overeat, occasionally I feel guilt or self-hate. C. Almost all the time I experience strong guilt or self-hate after I overeat. Response Group 6: B Group 7 A. I don't lose total control of my eating when dieting even after periods when I overeat. B. Sometimes when I eat a forbidden food on a diet, I feel like I blew it and eat even more. C. Frequently, I have the habit of saying to myself, I've blown it now, why not go all the way, when I overeat on a diet. When that happens I eat more. D. I have a regular habit of starting a strict diets for myself but I break the diets by going on an eating binge. My life seems to be either a feast or famine. Response Group 7: D Group 8 A. I rarely eat so much food that I feel uncomfortably stuffed afterwards. B. Usually about once a month, I each such a quantity of food, I end up feeling very stuffed. C. I have regular periods during the month when I eat large amounts of food, either at mealtime or at snacks. D. I eat so much food that I regularly feel quite uncomfortable after eating and sometimes a bit nauseous. Response Group 8: C Group 9 A. My level of calorie intake does not go up very high or go down very low on a regular basis. B. Sometimes after I overeat, I will try to reduce my caloric intake to almost nothing to compensate for the excess calories I've eaten. C. I have a regular habit of overeating during the night. It seems that my routine is not to be hungry in the morning but overeat in the evening. D. In my adult years, I have had week-long periods where I practically starve myself. This follows periods when I overeat. It seems I live a life of either feast or famine. Response Group 9: D Group 10 A. I usually am able to stop eating when I want to. I know when enough is enough. B. Every so often, I experience a compulsion to eat which I can't seem to control. C. Frequently, I experience strong urges to eat which I seem unable to control, but at other times I can control my eating urges. D. I feel incapable of controlling urges to eat. I have a fear of not being able to stop eating voluntarily. Response Group 10: A Group 11 A. I don't have any problem stopping eating when I feel full. B. I usually can stop eating when I feel full but occasionally overeat leaving me feeling uncomfortably stuffed. C. I have a problem stopping eating once I start and usually I feel uncomfortably stuffed after I eat a meal. D. Because I have a problem not being able to stop eating when I want, I sometimes have to induce vomiting to relieve my stuffed feeling. Response Group 11: B Group 12 A. I seem to eat just as much when I'm with others, Family social gatherings as when I'm by myself. B. Sometimes, when I'm with other persons, I don't eat as much as I want to eat because I'm self-conscious about my eating. C. Frequently, I eat only a small amount of food when others are present, because I'm very embarrassed about my eating. D. I feel so ashamed about overeating that I pick times to overeat when I know no one will see me. I feel like a closet eater. Response Group 12: C Group 13 A. I eat three meals a day with only an occasional between meal snack. B. I eat 3 meals a day, but I also normally snack between meals. C. When I am snacking heavily, I get in the habit of skipping regular meals. D. There are regular periods when I seem to be continually eating, with no planned meals. Response Group 13: C Group 14 A. I don't think much about trying to control unwanted eating urges. B. At least some of the time, I feel my thoughts are pre-occupied with trying to control my eating urges. C. I feel that frequently I spend much time thinking about how much I ate or about trying not to eat anymore. D. It seems to me that most of my waking hours are pre-occupied by thoughts about eating or not eating. I feel like I'm constantly struggling not to eat. Response Group 14: B Group 15 A. I don't think about food a great deal. B. I have strong craving for food but they last only for brief periods of time. C. I have days when I can't seem to think about anything else but food. D. Most of my days seem to be pre-occupied with thoughts about food. I feel like I live to eat. Response Group 15: B Group 16 A. I usually know whether or not I'm physically hungry. I take the right portion of food to satisfy me. B. Occasionally, I feel uncertain about knowing whether or not I'm physically hungry. A these times it's hard to know how much food I should take to satisfy me. C. Even though I might know how many calories I should eat, I don't have any idea what is a normal amount of food for me. Response Group 16: A Binge Eating Score: 22 Score less than 17 Minimal Risk Score between 18-26 Moderate Risk Score between 27-46 High Risk Assessment & Plan Assessment & Plan (1) Adjustment disorder: Code(s): F43.20 - Adjustment disorder, unspecified Qualifiers: Adjustment disorder type: with mixed anxiety and depressed mood Qualified Code(s): F43.23 - Adjustment disorder with mixed anxiety and depressed mood (2) Pre-bariatric surgery psychological evaluation: Code(s): Z71.89 - Other specified counseling Plan Following a comprehensive behavioral health assessment?including review of the Binge Eating Scale, PHQ-9, mental status evaluation, and patient self-report?there are no current behavioral health contraindications to proceeding with bariatric surgery. The patient demonstrates appropriate insight, motivation, and psychological readiness for the procedure. No active psychiatric symptoms or maladaptive eating behaviors were identified that would impede surgical outcomes at this time. The patient is cleared from a behavioral health perspective to proceed with bariatric surgery, and documentation can be submitted for insurance approval as indicated. The patient will return for a follow-up behavioral health visit in approximately 6?8 weeks for ongoing support, and again at 1?4 weeks postoperatively to monitor psychological adjustment, reinforce coping strategies, and screen for any emerging concerns such as mood changes, adjustment difficulties, or disordered eating patterns. Additional behavioral health support will be provided as needed based on postoperative assessment. Next appointment: 06/17/2024 at 12:00 PM, via video. Telehealth Telehealth Telehealth Platform: [facility] Location of provider rendering services: practice address Location of patient: other (Work. [place], [place] Patient Identification confirmed using: Name, : Yes Telehealth method: video Patient verbally consented to treatment: Yes Patient verbally consented to billing insurance company: Yes Patient informed of any privacy concerns related to visit: Yes Minutes spent on Phone/Video with Pt.: 50 Coding [place] [address] Tele Psytx 45 mins Patient Type Established Diagnoses Adjustment disorder with mixed anxiety and depressed mood F43.23 Adjustment disorder type: with mixed anxiety and depressed mood Pre-bariatric surgery psychological evaluation Z71.89 Additional Codes PHQ-9 - 67017 - PHQ-9 Billing: Yes ([id number]) Time Spent (min) 50
--- OUTSIDE RECORDS SUMMARY | 2025-04-22 20:05 | XMS_ITS | Clinical Summary ---
Author Organization [facility] Address [address] [place] [address] Phone Care Team Providers Care Terminal Block Assembler Name Role Phone Elroy Herrera MD Primary Care Provider [phone] Allergies No known active allergies Medications ondansetron ODT (ZOFRAN-ODT) 4 mg disintegrating tablet Dissolve 1 tablet (4 mg total) on top of the tongue every 8 (eight) hours if needed for nausea or vomiting for up to 3 days. Let 1 tablet dissolve under the tongue three times daily as needed for nausea or vomiting. 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, not stated as uncontrolled(250.60) ([facility]) Family History Medical History Relation Name Comments [...] Paco Brennan Brother 2 Alive 11/23/11 Yahaira lawton Father Alive Maternal Grandfather Alive Maternal Grandmother [...] reflex microscopic (04/16/2025 11:26 AM EST) Specific [place] Urine >1.045(H) 1.003 - 1.030 LAB URINALYSIS - AUTOMATED METHOD 04/16/2025 12:07 PM EST [facility] pH, Urine 6.5 5.0 - [...] SH[facility] LAB URINE ORDERABLES Final Resul t [facility] [address] [place] [address], * CT Abdomen Pelvis w Contrast (04/16/2025 [...] Signed Date: 04/16/2025 11:17 ET Workstation ID: [id number] Transcribed By: Self Edit Transcribed Date: 04/16/2025 [...] Signed Date: 04/16/2025 11:17 ET Workstation ID: [id number] Transcribed By: Self Edit Transcribed Date: 04/16/2025 11:10 ET [facility]льг[facility] SHAR[facility] IM CT PROCEDURES Final Result * [place] urine culture tube (04/16/2025 10:17 AM EST) Extra Tube Hold for add-ons. 04/16/2025 1:01 PM EST [facility] Comment:Auto resulted. Urine Urine specimen obtained by clean catch procedure / Unknown 04/16/2025 10:17 AM EST 04/16/2025 11:56 AM EST Param Patrick MD LAB URINE ORDERABLES Final Result [facility] [address] [place] [address], * (ABNORMAL) CBC auto differential (04/16/2025 9:41 [...] 10:00 AM [facility] Basophils Absolute 0.03 0.00 - 0.20 K/mcL LAB HEMETOLOGY METHOD 04/16/2025 10:00 AM EST [facility] Immature Granulocytes Absolute 0.05(H) 0.00 - 0.03 K/mcL LAB HEMETOLOGY METHOD 04/16/2025 10:00 AM EST [facility] Blood Venous blood specimen / Unknown Venipuncture / Unknown 04/16/2025 9:41 AM EST 04/16/2025 9:54 AM EST [facility] LAB BLOOD ORDERABLES Final Resul t Performing Organization Address [facility] Co de Phone Number [facility] [address] [place] [address], [place] [phone] * hCG, serum, qualitative (04/16/2025 9:41 AM EST) Pathologist [facility] hCG Qual Negative Negative 04/16/2025 10:45 AM EST [facility] Blood Venous blood specimen / Unknown Venipuncture / Unknown 04/16/2025 9:41 AM EST 04/16/2025 9:54 AM EST Param Patrick MD LAB BLOOD ORDERABLES Final Result Performing Organization Address [facility] de Phone Number [facility] [address] [place] [address], [place] [phone] * Lipase (04/16/2025 9:41 AM EST) Pathologist [facility] Lipase 63 13 - 75 unit/L LAB CHEMISTRY METHOD 04/16/2025 10:22 AM EST [facility] Blood Venous blood specimen / Unknown Venipuncture / Unknown 04/16/2025 9:41 AM EST 04/16/2025 9:54 AM EST [facility] LAB BLOOD ORDERABLES Final Resul t Performing Organization Address [facility] Co de Phone Number [facility] [address] [place] [address], [place] [phone] * (ABNORMAL) Comprehensive Metabolic Panel (CMP) (04/16/2025 9:41 AM EST) Sodium 135 133 - 145 mmol/L LAB CHEMISTRY METHOD 04/16/2025 10:23 AM [facility] Potassium 3.6 3.5 - 5.5 [...] LAB CHEMISTRY METHOD 04/16/2025 10:23 AM EST [facility] Alkaline Phosphatase 92 42 - 121 unit/L LAB CHEMISTRY METHOD 04/16/2025 10:23 AM EST [facility] Total Protein 7.4 6.0 - 8.0 g/dL LAB CHEMISTRY METHOD 04/16/2025 10:23 AM EST [facility] Albumin 3.9 3.2 - 5.0 g/dL LAB CHEMISTRY METHOD 04/16/2025 10:23 AM EST [facility] Total Bilirubin 0.4 0.0 - 1.4 mg/dL LAB CHEMISTRY METHOD 04/16/2025 10:23 AM EST [facility] Blood Venous blood specimen / Unknown Venipuncture / Unknown 04/16/2025 9:41 AM EST 04/16/2025 9:54 AM EST us О[facility] LAB BLOOD ORDERABLES Final Resul t [facility] [address] [place] [address], * Pap smear (06/14/2021) 06/14/2021 Narrative HISTORICAL TESTING LAB RESULTING AGENCY - 06/24/2021 7:46 AM EST [id number] THINPREP PAP, IMAGED: NEGATIVE FOR SQUAMOUS INTRAEPITHELIAL [...] NEG, Z12.4, LMP 05/23/21. Jazlyn Vidal Valle [facility] CYTOLOGY ORDERA BLES Final Result HISTORICAL TESTING LAB RESULTING AGENCY from Last 3 Months or Most Recently Relevant to Health Maintenance Insurance [facility] MEDICA[employer] ADVANTAGE Care Teams Terminal Block Assembler Relationship Specialty Start Date End Date Elroy Herrera MD [address] [place] [id number] PCP - General Internal Medicine 02/03/25
== END 2025-04-22 11:04 | disposition home or self-care (01) ==
LOC: HO.HBST 10:25
PROVIDERS: PCP Internal Medicine; Visit Provider Counselor Mental Health
DX: F43.23 Adjustment disorder with mixed anxiety and depressed mood (principal); Z71.89 Other specified counseling
CPT/HCPCS: 90834

== ENCOUNTER 2025-05-07 08:14 | Outpatient (REF) | payer OTHER, SELFPAY ==
--- NOTE | ~2025-05-07 | FL_ITS ---
EXAMINATION: XR FLUOROSCOPY UPPER GI WITH AIR CLINICAL INFORMATION: E66.01 - Morbid (severe) obesity due to excess calories COMPARISON: None available. TECHNIQUE: Upper GI was performed using thin and thick barium and effervescent granules. FINDINGS: Swallowing mechanism is normal. No aspiration or penetration. Esophageal motility is normal. Mild mucosal irregularity questionable for mild esophagitis. No mass, stricture, reflux or hernia is seen. There is slightly delayed emptying of the stomach. The stomach and duodenum are otherwise normal. No fold thickening, mass, stricture or ulcer is seen. FLUOROSCOPY TIME: 1 minute 22 seconds DOSE AREA PRODUCT: 1660 uGy-m2 (microgray-meter squared) FL/FL upper GI w air IMPRESSION: Question mild esophagitis. Slightly delayed emptying of the stomach. Electronically signed by: Hui Mackey MD 05/07/2025 09:21 AM SUNIL
== END 2025-05-07 08:15 | disposition home or self-care (01) ==
LOC: HO.XRAY 08:14
PROVIDERS: PCP Internal Medicine; Visit Provider Surgery
DX: E66.01 Morbid (severe) obesity due to excess calories (principal)
CPT/HCPCS: 74246

== ENCOUNTER → 2025-05-07 08:15 | Outpatient (BNV) | payer OTHER, SELFPAY | PROVIDERS: PCP Internal Medicine; Visit Provider Radiology Diagnostic Radiology | DX: K31.84 Gastroparesis (principal); K20.90 Esophagitis, unspecified without bleeding | CPT/HCPCS: 74246 ==